=== PATIENT | female | born 1985 | race Caucasian/White ===

== ENCOUNTER 2019-09-06 07:21 | Emergency (ER) | payer SELFPAY ==
[~2019-09-06] VITALS: Ht 172.7 cm; Wt 70.3 kg
[2019-09-06 07:29] VITALS: BP 114/73
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
[2019-09-06] MEDS ORDERED: Bacitracin Oint UD TOPIC ONE ×2 (08:55→09:15)
[2019-09-06] MEDS ORDERED: IBUPROFEN600 MG ORAL (09:01)
[2019-09-06 09:05] VITALS: BP 114/73
--- NOTE | 2019-09-06 09:05 | NUR ---
ER DISCHARGE NOTE:acewrap placed on right ankle and cratchies provided Patient is cleared to be discharged per ERMD, pt is aox4, on room air, with stable vital signs. pt was given dc and prescription instructions, pt was able to verbalize understanding, pt is able to ambulate with steady gait. pt took all belongings.
--- NOTE | 2019-09-06 12:07 | Diagnostic Imaging Report ---
Indication: Pain right ankle Comparison: None Findings: 3 views of the right ankle obtained. No acute fracture, malalignment, periostitis, or osteochondral defects are identified. Soft tissues are unremarkable.. Impression: No acute findings
--- NOTE | 2019-09-06 12:08 | Diagnostic Imaging Report ---
Indication: left ankle pain Comparison: None Findings: 3 views of the left ankle obtained. No acute fracture, malalignment, periostitis, or osteochondral defects are identified. Impression: No acute findings
== END 2019-09-06 09:05 | disposition home or self-care (01) ==
LOC: EDBD 07:21 → EMR 07:37
DX: M25.572 Pain in left ankle and joints of left foot (principal); M25.571 Pain in right ankle and joints of right foot; S90.512A Abrasion, left ankle, initial encounter; X50.1XXA Overexertion from prolonged static or awkward postures, initial encounter; Y92.9 Unspecified place or not applicable; Z88.6 Allergy status to analgesic agent
CPT/HCPCS: 99284